=== PATIENT | female | born 1975 | race Caucasian/White ===

== ENCOUNTER 2021-04-14 03:43 | Emergency (ER) | payer SELFPAY ==
[~2021-04-14] VITALS: Ht 177.8 cm; Wt 63.5 kg
[2021-04-14] MEDS ORDERED: LIDOCAINE 4% PATCH TP ONE (04:30)
[2021-04-14 04:40] LABS: CLARITY,URINE SL CLOUDY (CLEAR); COLOR,URINE YELLOW (YELLOW); KETONES,URINE NEGATIVE (NEGATIVE); LEUKOCYTE ESTERASE ,URINE NEGATIVE (NEGATIVE); NITRITE,URINE NEGATIVE (NEGATIVE); PROTEIN,URINE DIPSTICK NEGATIVE (NEGATIVE); URINE UROBILINOGEN 1 mg/dL (0.2 - 1)
[2021-04-14 04:44] LABS: BACTERIA,URINE MODERATE /HPF; EPITHELIAL CELLS,URINE MANY /LPF; RBC,URINE 0-5 /HPF (0-5)
[2021-04-14 05:44] VITALS: BP 137/97
[2021-04-14] MEDS ORDERED: OXYCODONE HCL20 M1 PO (06:03)
== END 2021-04-14 06:14 | disposition home or self-care (01) ==
LOC: ER 03:46
DX: R07.89 Other chest pain (principal); S20.211A Contusion of right front wall of thorax, initial encounter; W18.2XXA Fall in (into) shower or empty bathtub, initial encounter; Y93.E1 Activity, personal bathing and showering; Y92.002 Bathroom of unspecified non-institutional (private) residence as the place of occurrence of the external cause; B19.20 Unspecified viral hepatitis C without hepatic coma; F17.210 Nicotine dependence, cigarettes, uncomplicated
CPT/HCPCS: 71101; 81001; 81025; 99283

== ENCOUNTER 2021-10-22 07:32 | Emergency (ER) | payer BC, OTHER ==
[~2021-10-22] VITALS: Ht 177.8 cm; Wt 63.5 kg
[~2021-10-22 07:32] MED LIST: OXYCODONE HCL20 M1 PO
== END 2021-10-22 08:29 | disposition home or self-care (01) ==
LOC: ER 07:50
DX: L02.415 Cutaneous abscess of right lower limb (principal); F41.9 Anxiety disorder, unspecified; B19.20 Unspecified viral hepatitis C without hepatic coma; F17.210 Nicotine dependence, cigarettes, uncomplicated
CPT/HCPCS: 99282

== ENCOUNTER 2021-11-01 16:48 | Inpatient (IN) | payer OTHER ==
[~2021-11-01] VITALS: Ht 177.8 cm; Wt 63.5 kg
[2021-11-01] MEDS ORDERED: HYDROCODONE/APAP 5MG-325MG TAB PO ONE (17:45)
[2021-11-01] MEDS ORDERED: LACTATED RINGER'S 1,000 ML INJ ONE (17:45)
[2021-11-01 18:28] LABS: BASOPHILS # (AUTO) 0.1 (0.0-0.1); BASOPHILS % 0.7 % (0.0-1.0); EOSINOPHILS # (AUTO) 0.4 (0.0-0.4); HEMATOCRIT 42.8 % (34.2-44.1); HEMOGLOBIN 13.7 g/dL (12.0-16.0); LYMPHOCYTES # (AUTO) 3.3 (1.0-3.2); LYMPHOCYTES % 37.6 % (18.0-39.1); MEAN CORPUSCULAR HEMOGLOBIN 31.1 pg (28-32); MEAN CORPUSCULAR VOLUME 97.3 fL (81-99); MONOCYTES # (AUTO) 0.8 (0.2-0.8); MONOCYTES % 9.5 % (4.4-11.3); NEUTROPHILS # (AUTO) 4.2 (2.1-6.9); PLATELET COUNT 508 x10e3/uL (140-360); RED CELL DISTRIBUTION WIDTH 14.5 % (11.7-14.4)
[2021-11-01 18:32] LABS: ALBUMIN 4.1 g/dL (3.5-5.0); ALBUMIN/GLOBULIN RATIO 1.1 (0.8-2.0); ANION GAP 14.5 mmol/L (8-16); CALCIUM 8.7 mg/dL (8.4-10.2); CREATININE, SERUM 0.8 mg/dL (0.57-1.11); POTASSIUM 4.5 mmol/L (3.5-5.1)
[2021-11-01] MEDS ORDERED: IOPAMIDOL 370 MG/ML 100 ML INFUS..BTL INJ ONE (19:10)
[2021-11-01] MEDS: Doxycycline IV 100 MG in SODIUM CHLORIDE 0.9% 100 ML IV SCH (19:15)
[2021-11-01] MEDS ORDERED: CEFEPIME HCL 1 GM VIAL ONE (19:22)
[2021-11-01] MEDS ORDERED: ONDANSETRON HCL INJ 2MG/ML 2ML 2 MG/ML VIAL IV PRN (19:30)
[2021-11-01] MEDS ORDERED: Morphine 4mg INJECTION 4 MG/ML INJ IV PRN (19:30)
[2021-11-01] MEDS ORDERED: Vancomycin IV 1 GM in SODIUM CHLORIDE 0.9% 250ML 250 ML IV SCH (20:00)
[2021-11-01] MEDS ORDERED: ACETAMINOPHEN/CODEINE 300MG - 30MG TAB PO PRN (21:15)
[2021-11-01] MEDS ORDERED: ACETAMINOPHEN 325 MG TAB PO PRN (21:15)
[2021-11-01] MEDS ORDERED: HYDRALAZINE HCL 20 MG/ML VIAL IV PRN (21:15)
[2021-11-01] MEDS ORDERED: MELATONIN 3 MG TAB PO PRN (21:15)
[2021-11-01] MEDS ORDERED: GUAIFENESIN/DEXTROMETHORPHAN LIQD 5 ML UDC PO PRN (21:15)
[2021-11-01] MEDS: Morphine 4mg INJECTION 4 MG/ML INJ IV PRN (21:54)
[2021-11-01] MEDS: ONDANSETRON HCL INJ 2MG/ML 2ML 2 MG/ML VIAL IV PRN (21:55)
[2021-11-02] MEDS: Morphine 4mg INJECTION 4 MG/ML INJ IV PRN ×3 (03:14→16:04)
[2021-11-02] MEDS: ONDANSETRON HCL INJ 2MG/ML 2ML 2 MG/ML VIAL IV PRN (03:14)
[2021-11-02 06:12] LABS: BASOPHILS # (AUTO) 0.1 (0.0-0.1); BASOPHILS % 0.8 % (0.0-1.0); EOSINOPHILS # (AUTO) 0.6 (0.0-0.4); EOSINOPHILS % 6.6 % (0.0-6.0); HEMATOCRIT 40.5 % (34.2-44.1); HEMOGLOBIN 12.4 g/dL (12.0-16.0); LYMPHOCYTES # (AUTO) 4.9 (1.0-3.2); LYMPHOCYTES % 50.7 % (18.0-39.1); MEAN CORPUSCULAR HEMOGLOBIN 30.6 pg (28-32); MEAN CORPUSCULAR HGB CONC 30.6 g/dL (31-35); MONOCYTES % 10.7 % (4.4-11.3); NEUTROPHILS % 30.9 % (38.7-80.0); PLATELET COUNT 489 x10e3/uL (140-360); RED BLOOD COUNT 4.05 x10e6/uL (3.6-5.1); RED CELL DISTRIBUTION WIDTH 14.6 % (11.7-14.4)
[2021-11-02 06:20] LABS: ANION GAP 11.3 mmol/L (8-16); CALCIUM 8.1 mg/dL (8.4-10.2); CREATININE, SERUM 0.79 mg/dL (0.57-1.11); POTASSIUM 4.3 mmol/L (3.5-5.1)
[2021-11-02] MEDS: Vancomycin IV 1 GM in SODIUM CHLORIDE 0.9% 250ML 250 ML IV SCH (08:38)
[2021-11-02] MEDS: MULTIVITAMINS/MINERALS TAB PO SCH (09:53)
[2021-11-02] MEDS: Doxycycline IV 100 MG in SODIUM CHLORIDE 0.9% 100 ML IV SCH (09:53)
[2021-11-02 17:38] VITALS: BP 138/93
[2021-11-02 17:45] VITALS: BP 138/93
[2021-11-02 17:46] VITALS: BP 138/93
[2021-11-02] MEDS ORDERED: DEXTROAMP-AMPHE30 M1 PO (18:00)
[2021-11-02] MEDS ORDERED: ALPRAZOLAM1 MG PO ×2 (18:00)
[2021-11-02] MEDS ORDERED: ZOLPIDEM TART12.5 MG PO (18:00)
[2021-11-02] MEDS ORDERED: SODIUM CHLORIDE 0.9% 250ML 250 ML ONE (18:28)
[2021-11-02] MEDS ORDERED: ACETAMINOPHEN/CODEINE 300MG - 30MG TAB PO PRN (18:45)
[2021-11-02] MEDS ORDERED: ALPRAZOLAM 1 MG TAB PO PRN (18:45)
[2021-11-02 20:00] VITALS: BP 128/84
[2021-11-02 20:20] VITALS: BP 128/84
[2021-11-02] MEDS ORDERED: ZOLPIDEM TARTRATE 5 MG TAB PO PRN (21:00)
[2021-11-03] VITALS (8 sets, daily range): BP systolic 125–142; BP diastolic 82–104
[2021-11-03] MEDS: HYDROCODONE/APAP 5MG-325MG TAB PO PRN ×2 (00:59→09:10)
[2021-11-03] MEDS: Vancomycin IV 1 GM in SODIUM CHLORIDE 0.9% 250ML 250 ML IV SCH ×3 (01:31→21:33)
[2021-11-03] MEDS ORDERED: Morphine 2mg Syringe 2 MG/ML SYR IV ONE (02:00)
[2021-11-03] MEDS: MULTIVITAMINS/MINERALS TAB PO SCH (09:10)
[2021-11-03] MEDS: OXYCODONE HCL IR 5 MG TAB PO PRN ×2 (16:05→21:31)
[2021-11-03] MEDS ORDERED: OXYCODONE HCL IR 5 MG TAB PO ONE (21:30)
[2021-11-04] VITALS: BP 128/94
[2021-11-04] MEDS: OXYCODONE HCL IR 5 MG TAB PO PRN ×3 (02:20→10:20)
[2021-11-04 04:00] VITALS: BP 131/93
[2021-11-04 08:44] VITALS: BP 114/93
[2021-11-04] MEDS: MULTIVITAMINS/MINERALS TAB PO SCH (08:45)
[2021-11-04] MEDS: Vancomycin IV 1 GM in SODIUM CHLORIDE 0.9% 250ML 250 ML IV SCH (08:45)
[2021-11-04 08:50] VITALS: BP 114/93
[2021-11-04] MEDS ORDERED: Morphine 2mg Syringe 2 MG/ML SYR IV ONE (09:00)
[2021-11-04] MEDS ORDERED: SODIUM CHLORIDE 0.9% 250ML 250 ML ONE (09:55)
[2021-11-04] MEDS ORDERED: CLEOCIN HCL300 MG PO (11:27)
[2021-11-04 12:36] VITALS: BP 114/93
[2021-11-04] MEDS ORDERED: ONDANSETRON HCL 4 MG ORAL DISINTEGRATING TAB PO PRN (13:00)
== END 2021-11-04 13:34 | disposition home or self-care (01) | DRG 603 ==
LOC: ER 17:06 → ERHOLD 19:28 → MED/SURG3 11-02 17:48 → OBSVTOIN 11-03 07:54
PROVIDERS: ADMIT Internal Medicine; ATTEND Internal Medicine
DX: L03.115 Cellulitis of right lower limb (principal); L02.415 Cutaneous abscess of right lower limb; B18.2 Chronic viral hepatitis C; Z86.16 Personal history of COVID-19; F17.210 Nicotine dependence, cigarettes, uncomplicated; Z20.822 Contact with and (suspected) exposure to COVID-19; Z90.81 Acquired absence of spleen
CPT/HCPCS: 0223U; 36415; 80048; 80053; 80202; 83605; 84702; 85025; 87040; 87071; 87205; 94799; 99251; 99284; G0378; J0692; J2270; J2405; J3370; J7050; J7121; Q9967

== ENCOUNTER 2022-01-08 16:50 | Emergency (ER) | payer OTHER ==
[~2022-01-08] VITALS: Ht 170.2 cm; Wt 61.2 kg
[~2022-01-08 16:50] MED LIST changes: +ALPRAZOLAM1 MG PO; +CLEOCIN HCL300 MG PO; +DEXTROAMP-AMPHE30 M1 PO; +ZOLPIDEM TART12.5 MG PO
[2022-01-08] MEDS ORDERED: IBUPROFEN 600 MG TAB PO STA (17:03)
[2022-01-08] MEDS ORDERED: TRAMADOL HCL 50 MG TAB PO ONE (20:00)
[2022-01-08] MEDS ORDERED: ULTRAM 50MG50 MG PO (20:03)
== END 2022-01-08 21:08 | disposition home or self-care (01) ==
LOC: ER 17:05
DX: S42.001A Fracture of unspecified part of right clavicle, initial encounter for closed fracture (principal); S05.12XA Contusion of eyeball and orbital tissues, left eye, initial encounter; Y04.8XXA Assault by other bodily force, initial encounter; Y92.89 Other specified places as the place of occurrence of the external cause; B19.20 Unspecified viral hepatitis C without hepatic coma; F41.9 Anxiety disorder, unspecified; F17.210 Nicotine dependence, cigarettes, uncomplicated
CPT/HCPCS: 70450; 70486; 71111; 72125; 81025; 99284

== ENCOUNTER 2024-09-14 16:14 | Inpatient (IN) | payer OTHER ==
[~2024-09-14] VITALS: Ht 170.2 cm; Wt 71.7 kg
[~2024-09-14 16:14] MED LIST changes: +ULTRAM 50MG50 MG PO
[2024-09-14 17:28] VITALS: TEMP 98.8
[2024-09-14 19:53] LABS: BASOPHILS % 0.4 % (0.0-1.0); EOSINOPHILS # (AUTO) 0.6 (0.0-0.4); EOSINOPHILS % 4.9 % (0.0-6.0); HEMATOCRIT 42.2 % (34.2-44.1); HEMOGLOBIN 13.5 g/dL (12.0-16.0); LYMPHOCYTES # (AUTO) 4.9 (1.0-3.2); LYMPHOCYTES % 42.9 % (18.0-39.1); MEAN CORPUSCULAR HEMOGLOBIN 30.8 pg (28-32); MEAN CORPUSCULAR VOLUME 96.1 fL (81-99); MONOCYTES % 9.2 % (4.4-11.3); NEUTROPHILS # (AUTO) 4.7 (2.1-6.9); NEUTROPHILS % 41.3 % (38.7-80.0); PLATELET COUNT 513 x10e3/uL (140-360); RED BLOOD COUNT 4.39 x10e6/uL (3.6-5.1); RED CELL DISTRIBUTION WIDTH 14.5 % (11.7-14.4); WHITE BLOOD COUNT 11.32 x10e3/uL (4.8-10.8)
[2024-09-14] MEDS: ONDANSETRON HCL INJ 2MG/ML 2ML 2 MG/ML VIAL IV STA (19:56)
[2024-09-14] MEDS: DIPHENHYDRAMINE HCL INJ 50 MG/ML VIAL IV ONE (19:56)
[2024-09-14] MEDS: SODIUM CHLORIDE 0.9% 1000ML 1,000 ML IV ONE (19:57)
[2024-09-14] MEDS: Morphine 4mg INJECTION 4 MG/ML INJ IV ONE (19:57)
[2024-09-14 20:13] LABS: ALBUMIN 3.7 g/dL (3.5-5.0); ALBUMIN/GLOBULIN RATIO 0.9 (0.8-2.0); BILIRUBIN,TOTAL 0.4 mg/dL (0.2-1.2); CREATININE, SERUM 0.79 mg/dL (0.57-1.11); TOTAL PROTEIN 7.6 g/dL (6.5-8.1)
[2024-09-14] MEDS: Vancomycin IV 1 GM in SODIUM CHLORIDE 0.9% 250ML 250 ML IV SCH (20:38)
[2024-09-14 20:50] VITALS: PULSE 79; RESP 17
[2024-09-14] MEDS ORDERED: SODIUM CHLORIDE FLUSH 10 ML SYR INJ PRN (21:30)
[2024-09-14 22:19] VITALS: BP 129/94; PULSE 83; RESP 20; TEMP 98.6; O2SAT 98
[2024-09-14 22:20] VITALS: BP 129/94; PULSE 83; RESP 20; TEMP 98.6; O2SAT 98
[2024-09-14 22:36] VITALS: PULSE 82; RESP 18; O2SAT 97
[2024-09-14] MEDS ORDERED: DOXYCYCLINE HY100 MG PO (22:43)
[2024-09-14] MEDS ORDERED: VARENICLINE TA0.5 MG PO (22:43)
[2024-09-14] MEDS ORDERED: EPCLUSA 400 MG1 EACH PO (22:43)
[2024-09-14] MEDS ORDERED: AMBIEN10 MG PO (22:44)
[2024-09-14] MEDS ORDERED: ADDERALL 30 MG30 MG PO (22:44)
[2024-09-14] MEDS ORDERED: NICOTINE PATCH1 EAC1 TOP (22:59)
[2024-09-14] MEDS: ONDANSETRON HCL INJ 2MG/ML 2ML 2 MG/ML VIAL IV PRN (23:59)
[2024-09-14] MEDS: Morphine 4mg INJECTION 4 MG/ML INJ IV PRN (23:59)
[2024-09-15] VITALS (7 sets, daily range): BP systolic 113–146; BP diastolic 79–102; PULSE 76–97; RESP 17–19; TEMP 97–98.6; O2SAT 94–99
[2024-09-15] MEDS: SODIUM CHLORIDE 0.9% 250ML 250 ML ONE (00:06)
[2024-09-15 05:16] LABS: BASOPHILS % 0.4 % (0.0-1.0); EOSINOPHILS # (AUTO) 0.5 (0.0-0.4); EOSINOPHILS % 5.2 % (0.0-6.0); HEMATOCRIT 37.6 % (34.2-44.1); HEMOGLOBIN 12.1 g/dL (12.0-16.0); LYMPHOCYTES # (AUTO) 5.4 (1.0-3.2); LYMPHOCYTES % 51.3 % (18.0-39.1); MEAN CORPUSCULAR HGB CONC 32.2 g/dL (31-35); MEAN CORPUSCULAR VOLUME 96.4 fL (81-99); MONOCYTES % 9.2 % (4.4-11.3); NEUTROPHILS # (AUTO) 3.4 (2.1-6.9); NEUTROPHILS % 32.8 % (38.7-80.0); PLATELET COUNT 358 x10e3/uL (140-360); RED CELL DISTRIBUTION WIDTH 14.7 % (11.7-14.4); WHITE BLOOD COUNT 10.44 x10e3/uL (4.8-10.8)
[2024-09-15 05:52] LABS: ALBUMIN 3.3 g/dL (3.5-5.0); ALBUMIN/GLOBULIN RATIO 1.1 (0.8-2.0); ANION GAP 13.9 mmol/L (8-16); BILIRUBIN,TOTAL 0.3 mg/dL (0.2-1.2); CALCIUM 8.5 mg/dL (8.4-10.2); CREATININE, SERUM 0.82 mg/dL (0.57-1.11); POTASSIUM 3.9 mmol/L (3.5-5.1); TOTAL PROTEIN 6.2 g/dL (6.5-8.1)
[2024-09-15] MEDS: Vancomycin IV 1 GM in SODIUM CHLORIDE 0.9% 250ML 250 ML IV SCH (09:45)
[2024-09-15] MEDS ORDERED: ZOLPIDEM TARTRATE 10 MG TAB PO PRN (09:45)
[2024-09-15] MEDS ORDERED: ALPRAZOLAM 1 MG TAB PO PRN (09:45)
[2024-09-15 10:35] LABS: EOSINOPHILS % (MANUAL) 2 % (0-7); LYMPHOCYTES % (MANUAL) 55 % (19-48); MONOCYTES % (MANUAL) 8 % (3.4-9.0); NEUTROPHILS % (MANUAL) 31 % (40-74); PLATELET ESTIMATE ADEQUATE; PLATELET MORPHOLOGY COMMENT NORMAL; REACTIVE LYMPHOCYTES 4
[2024-09-15] MEDS: LACTOBACILLUS ACIDOPHILUS CAPSULE PO SCH (14:20)
[2024-09-15] MEDS: D AMPHET PO SCH (17:00)
[2024-09-15] MEDS: VARENICLINE TARTRATE PO SCH (17:00)
[2024-09-15] MEDS: AMPHET PO SCH (17:00)
[2024-09-15] MEDS: AMPHET ASP PO SCH (17:00)
[2024-09-15] MEDS: DIPHENHYDRAMINE HCL INJ 50 MG/ML VIAL IV PRN (21:40)
[2024-09-16] VITALS (7 sets, daily range): BP systolic 115–144; BP diastolic 80–98; PULSE 73–113; RESP 18–20; TEMP 97.8–98.7; O2SAT 95–100
[2024-09-16] MEDS: VELPATASVIR PO SCH (08:52)
[2024-09-16] MEDS: NICOTINE 14 MG/EA PATCH TOP SCH (08:52)
[2024-09-16] MEDS: SOFOSBUVIR PO SCH (08:52)
[2024-09-16] MEDS ORDERED: IBUPROFEN 400 MG TAB PO PRN (11:15)
[2024-09-17] VITALS (9 sets, daily range): BP systolic 101–166; BP diastolic 67–109; PULSE 79–111; RESP 17–20; TEMP 97.6–98.9; O2SAT 92–98
[2024-09-17 05:40] LABS: BASOPHILS # (AUTO) 0.1 (0.0-0.1); BASOPHILS % 0.4 % (0.0-1.0); EOSINOPHILS # (AUTO) 0.6 (0.0-0.4); EOSINOPHILS % 4.5 % (0.0-6.0); HEMATOCRIT 36.8 % (34.2-44.1); HEMOGLOBIN 11.8 g/dL (12.0-16.0); LYMPHOCYTES # (AUTO) 5.5 (1.0-3.2); MEAN CORPUSCULAR HEMOGLOBIN 30.9 pg (28-32); MEAN CORPUSCULAR HGB CONC 32.1 g/dL (31-35); MEAN CORPUSCULAR VOLUME 96.3 fL (81-99); MONOCYTES % 8.6 % (4.4-11.3); NEUTROPHILS # (AUTO) 4.9 (2.1-6.9); NEUTROPHILS % 40.8 % (38.7-80.0); PLATELET COUNT 381 x10e3/uL (140-360); RED BLOOD COUNT 3.82 x10e6/uL (3.6-5.1); RED CELL DISTRIBUTION WIDTH 14.6 % (11.7-14.4); WHITE BLOOD COUNT 12.11 x10e3/uL (4.8-10.8)
[2024-09-17 06:22] LABS: ALBUMIN 3.2 g/dL (3.5-5.0); ANION GAP 11.1 mmol/L (8-16); BILIRUBIN,TOTAL 0.3 mg/dL (0.2-1.2); CALCIUM 8.8 mg/dL (8.4-10.2); CREATININE, SERUM 0.89 mg/dL (0.57-1.11); POTASSIUM 4.1 mmol/L (3.5-5.1); TOTAL PROTEIN 6.4 g/dL (6.5-8.1)
[2024-09-17 09:15] LABS: EOSINOPHILS % (MANUAL) 3 % (0-7); LYMPHOCYTES % (MANUAL) 45 % (19-48); MONOCYTES % (MANUAL) 10 % (3.4-9.0); NEUTROPHILS % (MANUAL) 41 % (40-74); REACTIVE LYMPHOCYTES 1
[2024-09-17 09:16] LABS: PLATELET ESTIMATE ADEQUATE; PLATELET MORPHOLOGY COMMENT NORMAL; RBC MORPHOLOGY COMMENT NORMAL
[2024-09-17] MEDS: GABAPENTIN 100 MG CAP PO SCH (09:40)
[2024-09-17] MEDS: ENOXAPARIN SOD INJ 40 MG/0.4 ML SYR SC SCH (17:57)
[2024-09-17] MEDS: OXYCODONE HCL IR 5 MG TAB PO PRN (20:58)
[2024-09-18 02:58] VITALS: BP 117/91; PULSE 95; RESP 18; TEMP 98; O2SAT 96
[2024-09-18 08:00] VITALS: BP 110/82; PULSE 83; RESP 20; TEMP 97.6; O2SAT 96
[2024-09-18 08:21] VITALS: BP 154/63; PULSE 79; RESP 19; TEMP 97.6; O2SAT 97
[2024-09-18 11:42] VITALS: BP 130/88; PULSE 79; RESP 19; TEMP 97.8; O2SAT 95
[2024-09-18] MEDS ORDERED: LIDOCAINE HCL 2% LOCAL INJ 5 ML SDV VIAL INJ ONE (13:46)
[2024-09-18] MEDS ORDERED: FENTANYL CITRATE/PF 100MCG/2 ML INJ ONE (13:46)
[2024-09-18] MEDS ORDERED: SEVOFLURANE INHAL SOLN 250 ML PEN BTL ONE (13:46)
[2024-09-18] MEDS ORDERED: ACETAMINOPHEN 1000 MG/100 ML 100 ML IV ONE (13:46)
[2024-09-18] MEDS ORDERED: PROPOFOL IV EMULSION 10 MG/ML 20 ML VIAL ONE (13:46)
[2024-09-18] MEDS ORDERED: ONDANSETRON HCL INJ 2MG/ML 2ML 2 MG/ML VIAL ONE (14:29)
[2024-09-18] MEDS ORDERED: FAMOTIDINE 20 MG/2 ML VIAL IV ONE (14:29)
[2024-09-18] MEDS ORDERED: DEXAMETHASONE SOD PHOS INJ 4 MG/ML SDV ONE (14:29)
[2024-09-18] MEDS: FENTANYL CITRATE/PF 100MCG/2 ML INJ ONE (15:10)
[2024-09-18 16:15] VITALS: BP 129/84; PULSE 89; RESP 19; TEMP 97; O2SAT 98
[2024-09-18 20:00] VITALS: BP 149/85; PULSE 107; RESP 20; TEMP 98.6; O2SAT 95
[2024-09-19] VITALS (7 sets, daily range): BP systolic 112–151; BP diastolic 72–106; PULSE 92–118; RESP 18–20; TEMP 97.8–98.7; O2SAT 93–99
[2024-09-19] MEDS: ALPRAZOLAM 1 MG TAB PO PRN (01:02)
[2024-09-19] MEDS: ONDANSETRON HCL INJ 2MG/ML 2ML 2 MG/ML VIAL ONE (07:51)
[2024-09-19] MEDS: PIPERACILLIN/TAZOBACTAM 3.375 GM VIAL ONE (07:51)
[2024-09-19] MEDS: VELPATASVIR PO SCH (11:31)
[2024-09-19] MEDS: SOFOSBUVIR PO SCH (11:31)
[2024-09-19] MEDS: Morphine 4mg INJECTION 4 MG/ML INJ IV PRN (12:52)
[2024-09-19 13:07] LABS: BASOPHILS # (AUTO) 0.1 (0.0-0.1); BASOPHILS % 0.2 % (0.0-1.0); EOSINOPHILS % 0.1 % (0.0-6.0); HEMOGLOBIN 12.2 g/dL (12.0-16.0); LYMPHOCYTES # (AUTO) 3.8 (1.0-3.2); LYMPHOCYTES % 14.6 % (18.0-39.1); MEAN CORPUSCULAR HGB CONC 32.1 g/dL (31-35); MEAN CORPUSCULAR VOLUME 96.7 fL (81-99); MONOCYTES # (AUTO) 1.7 (0.2-0.8); MONOCYTES % 6.6 % (4.4-11.3); NEUTROPHILS # (AUTO) 20.3 (2.1-6.9); NEUTROPHILS % 77.8 % (38.7-80.0); PLATELET COUNT 405 x10e3/uL (140-360); RED BLOOD COUNT 3.93 x10e6/uL (3.6-5.1); RED CELL DISTRIBUTION WIDTH 14.3 % (11.7-14.4); WHITE BLOOD COUNT 26.08 x10e3/uL (4.8-10.8)
[2024-09-19] MEDS: HYDROCODONE 7.5MG/IBUPROFEN 200MG TAB PO PRN (18:48)
[2024-09-19] MEDS: Vancomycin IV 1 GM in SODIUM CHLORIDE 0.9% 250ML 250 ML IV SCH (21:15)
[2024-09-20] VITALS: BP 136/95; PULSE 71; RESP 18; TEMP 97.9; O2SAT 96
[2024-09-20 04:00] VITALS: BP 107/95; PULSE 84; RESP 18; TEMP 98.1; O2SAT 93
[2024-09-20 06:26] LABS: BASOPHILS # (AUTO) 0.1 (0.0-0.1); BASOPHILS % 0.3 % (0.0-1.0); EOSINOPHILS # (AUTO) 0.3 (0.0-0.4); EOSINOPHILS % 1.4 % (0.0-6.0); HEMATOCRIT 35.7 % (34.2-44.1); HEMOGLOBIN 11.4 g/dL (12.0-16.0); LYMPHOCYTES # (AUTO) 8.2 (1.0-3.2); LYMPHOCYTES % 35.7 % (18.0-39.1); MEAN CORPUSCULAR HEMOGLOBIN 31.3 pg (28-32); MEAN CORPUSCULAR HGB CONC 31.9 g/dL (31-35); MEAN CORPUSCULAR VOLUME 98.1 fL (81-99); MONOCYTES # (AUTO) 1.8 (0.2-0.8); MONOCYTES % 7.6 % (4.4-11.3); NEUTROPHILS # (AUTO) 12.4 (2.1-6.9); NEUTROPHILS % 54.4 % (38.7-80.0); PLATELET COUNT 347 x10e3/uL (140-360); RED BLOOD COUNT 3.64 x10e6/uL (3.6-5.1); RED CELL DISTRIBUTION WIDTH 14.6 % (11.7-14.4); WHITE BLOOD COUNT 22.91 x10e3/uL (4.8-10.8)
[2024-09-20 06:54] LABS: ANION GAP 11.7 mmol/L (8-16); CALCIUM 8.9 mg/dL (8.4-10.2); CREATININE, SERUM 0.8 mg/dL (0.57-1.11); POTASSIUM 3.7 mmol/L (3.5-5.1)
[2024-09-20 08:25] VITALS: BP 133/90; PULSE 85; RESP 15; TEMP 98; O2SAT 97
[2024-09-20 09:00] VITALS: BP 133/90; PULSE 85; RESP 15; TEMP 98; O2SAT 97
[2024-09-20 11:21] VITALS: BP 131/98; PULSE 87; RESP 16; TEMP 97.7; O2SAT 95
[2024-09-20 11:28] LABS: EOSINOPHILS % (MANUAL) 2 % (0-7); LYMPHOCYTES % (MANUAL) 40 % (19-48); MONOCYTES % (MANUAL) 8 % (3.4-9.0); NEUTROPHILS % (MANUAL) 50 % (40-74); PLATELET ESTIMATE ADEQUATE; PLATELET MORPHOLOGY COMMENT NORMAL; RBC MORPHOLOGY COMMENT NORMAL
[2024-09-20 16:02] VITALS: BP 119/76; PULSE 93; RESP 17; TEMP 98.4; O2SAT 96
== END 2024-09-20 16:45 | disposition home or self-care (01) | DRG 571 ==
LOC: ER 19:38 → ERHOLD 21:27 → MED/SURG2 22:21
PROVIDERS: ADMIT Internal Medicine; ATTEND Internal Medicine
PROC: 0JBP0ZZ Excision of Left Lower Leg Subcutaneous Tissue and Fascia, Open Approach (ICD-10-PCS; principal; 2024-09-17)
PROC: 02HV33Z Insertion of Infusion Device into Superior Vena Cava, Percutaneous Approach (ICD-10-PCS; 2024-09-17)
PROC: B548ZZA Ultrasonography of Superior Vena Cava, Guidance (ICD-10-PCS; 2024-09-17)
DX: L02.416 Cutaneous abscess of left lower limb (principal); D84.821 Immunodeficiency due to drugs; L97.829 Non-pressure chronic ulcer of other part of left lower leg with unspecified severity; L03.116 Cellulitis of left lower limb; T63.311A Toxic effect of venom of black widow spider, accidental (unintentional), initial encounter; F90.9 Attention-deficit hyperactivity disorder, unspecified type; B19.20 Unspecified viral hepatitis C without hepatic coma; G47.00 Insomnia, unspecified; F41.9 Anxiety disorder, unspecified; Z90.81 Acquired absence of spleen; Z79.899 Other long term (current) drug therapy
CPT/HCPCS: 36415; 36569; 71045; 80048; 80053; 80202; 85025; 87040; 87071; 87075; 87205; 94799; 99252; 99284; J1100; J1200; J1308; J1650; J2003; J2270; J2405; J2543; J7030; J7050